=== PATIENT | male | born 1985 | race Caucasian/White ===

== ENCOUNTER → 2016-04-27 | Outpatient (CLI) | payer OTHER ==
--- NOTE | 2016-04-27 10:51 | US ---
EXAMINATION TYPE: US abdomen complete DATE OF EXAM: 04/27/2016 8:06 AM COMPARISON: NONE CLINICAL HISTORY: R10.30 Lower Abd Pain. RUQ pain EXAM MEASUREMENTS: Liver Length: 16.5 cm Gallbladder Wall: 0.3 cm CBD: 0.3 cm Spleen: 14.6 cm Right Kidney: 11.8 x 4.0 x 6.0 cm Left Kidney: 11.2 x 6.0 x 5.3 cm TECHNOLOGIST IMPRESSION: Pancreas: visualized portions appear wnl Liver: appears wnl Gallbladder: no evidence of stones Evidence for sonographic Villalpando's sign: No CBD: wnl Spleen: enlarged Right Kidney: no evidence of hydronephrosis or mass Left Kidney: no evidence of hydronephrosis or mass Upper IVC: wnl Abd Aorta: appears wnl IMPRESSION: 1. Unremarkable abdomen ultrasound.
== END ==
LOC: RADUSWWP 07:38
PROVIDERS: ATTEND Family Medicine
DX: R10.30 Lower abdominal pain, unspecified (principal)
CPT/HCPCS: 76700

== ENCOUNTER 2016-06-21 12:36 | Emergency (ER) | payer OTHER ==
[2016-06-21] MEDS ORDERED: HYDROcodone/APAP 5-325MG 1 EACH TAB PO STA (12:53)
--- NOTE | 2016-06-21 12:56 | ED ---
Seizure HPI - General Chief Complaint: Seizure Stated Complaint: Seizure Time Seen by Provider: 06/21/16 12:46 Source: patient, RN notes reviewed Mode of arrival: wheelchair Limitations: no limitations - History of Present Illness Initial Comments: 30-year-old male presents emergency Department chief complaint seizure. Patient had a witnessed seizure at home by his significant other. Patient states is his fourth seizure that he's had. Patient is scheduled to see a neurologist in 3 weeks. Patient states that he was walking on stairs had a seizure. Patient does complain of left rib pain, facial injury. Witnessed seizure lasting approximately 1 minute tonic-clonic in nature. Patient denies any mouth injuries no lacerations. Patient states that he has no dizziness no blurred vision no focal weakness at this time. Patient has not taken any medication for seizures. - Related Data Home Medications Medication Instructions Recorded Confirmed Pregabalin [Lyrica] 75 mg PO BID 06/21/16 06/21/16 traMADol HCl [Ultram] 50 mg PO BID PRN 06/21/16 06/21/16 Allergies Allergy/AdvReac Type Severity Reaction Status Date / Time No Known Allergies Allergy Verified 06/21/16 13:20 Review of Systems ROS Statement: Those systems with pertinent positive or pertinent negative responses have been documented in the HPI. ROS Other: All systems not noted in ROS Statement are negative. Past Medical History Additional Past Medical History / Comment(s): IBS, seizure History of Any Multi-Drug Resistant Organisms: None Reported Past Surgical History: Ear Surgery, Tonsillectomy Past Psychological History: No Psychological Hx Reported Smoking Status: Current every day smoker Past Alcohol Use History: Abuse, Daily Past Drug Use History: Marijuana General Exam Limitations: no limitations General appearance: alert, in no apparent distress Head exam: Present: atraumatic, normocephalic, normal inspection Eye exam: Present: normal appearance, PERRL, EOMI, periorbital tenderness (Mild left). Absent: scleral icterus, conjunctival injection, periorbital swelling ENT exam: Present: normal exam, normal oropharynx, mucous membranes moist, TM's normal bilaterally, normal external ear exam Neck exam: Present: normal inspection, full ROM. Absent: tenderness, meningismus, lymphadenopathy Respiratory exam: Present: normal lung sounds bilaterally, chest wall tenderness (Moderate left lateral to posterior). Absent: respiratory distress, wheezes, rales, rhonchi, stridor Cardiovascular Exam: Present: regular rate, normal rhythm, normal heart sounds. Absent: systolic murmur, diastolic murmur, rubs, gallop, clicks GI/Abdominal exam: Present: soft, normal bowel sounds. Absent: distended, tenderness, guarding, rebound, rigid Extremities exam: Present: normal inspection, full ROM, normal capillary refill. Absent: tenderness, pedal edema, joint swelling, calf tenderness Neurological exam: Present: alert, oriented X3, CN II-XII intact, reflexes normal. Absent: motor sensory deficit Skin exam: Present: warm, dry, intact, normal color. Absent: rash Course Vital Signs 06/21/16 06/21/16 12:44 13:50 Temperature 97.3 F L 97.7 F Pulse Rate 97 96 Respiratory 18 16 Rate Blood Pressure 146/93 133/81 O2 Sat by Pulse 98 97 Oximetry Medical Decision Making - Medical Decision Making 30-year-old male present emergency from for seizure. Patient has known seizure disorder currently we did see neurology. Patient informed that he cannot drive for 6 months and until cleared by neurologist. Patient is stable at this time. Patient will be discharged. Return parameters were discussed. - Lab Data Result diagrams: 06/21/16 13:10 06/21/16 13:13 Lab Results 06/21/16 06/21/16 Range/Units 13:10 13:13 WBC 8.4 (3.8-10.6) k/uL RBC 4.87 (4.30-5.90) m/uL Hgb 15.6 (13.0-17.5) gm/dL Hct 45.8 (39.0-53.0) % MCV 94.2 D (80.0-100.0) fL MCH 32.1 (25.0-35.0) pg MCHC 34.1 (31.0-37.0) g/dL RDW 12.6 (11.5-15.5) % Plt Count 177 (150-450) k/uL Neutrophils % 74 % Lymphocytes % 19 % Monocytes % 4 % Eosinophils % 2 % Basophils % 1 % Neutrophils # 6.2 (1.3-7.7) k/uL Lymphocytes # 1.6 (1.0-4.8) k/uL Monocytes # 0.3 (0-1.0) k/uL Eosinophils # 0.1 (0-0.7) k/uL Basophils # 0.1 (0-0.2) k/uL Sodium 140 (137-145) mmol/L Potassium 4.4 (3.5-5.1) mmol/L Chloride 106 (98-107) mmol/L Carbon Dioxide 26 (22-30) mmol/L Anion Gap 8 mmol/L BUN 11 (9-20) mg/dL Creatinine 0.96 (0.66-1.25) mg/dL Est GFR (MDRD) Af Amer >60 (>60 ml/min/1.73 sqM) Est GFR (MDRD) Non-Af >60 (>60 ml/min/1.73 sqM) Glucose 117 H (74-99) mg/dL Calcium 9.9 (8.4-10.2) mg/dL Total Bilirubin 0.7 (0.2-1.3) mg/dL AST 39 (17-59) U/L ALT 54 (21-72) U/L Alkaline Phosphatase 89 (38-126) U/L Total Protein 7.7 (6.3-8.2) g/dL Albumin 4.6 (3.5-5.0) g/dL Serum Alcohol <10 mg/dL 06/21/16 14:19 EKG performed at 13:19 normal sinus rhythm rate of 92 NH interval 164 QRS duration 80, QT/QTC 384/474 Disposition Clinical Impression: Generalized seizure Disposition: HOME SELF-CARE Condition: Stable Instructions: Recurrent Seizures in Adults (ED) Additional Instructions: Please return to the Emergency Department if symptoms worsen or any other concerns. Time of Disposition: 14:20
[2016-06-21 13:26] LABS: Basophils # (A) 0.1 k/uL (0-0.2); Basophils % (A) 1 %; CH 32.3; CHCM 34.4; Eosinophils # (A) 0.1 k/uL (0-0.7); Eosinophils % (A) 2 %; HCT 45.8 % (39.0-53.0); HDW 2.36; HGB 15.6 gm/dL (13.0-17.5); Luc # (Auto) 0.08; Luc % (Auto) 1; Lymphocytes # (A) 1.6 k/uL (1.0-4.8); Lymphocytes % (A) 19 %; MCH 32.1 pg (25.0-35.0); MCHC 34.1 g/dL (31.0-37.0); Mean Platelet Volume 7.6; Monocytes # (A) 0.3 k/uL (0-1.0); Monocytes % (A) 4 %; Neutrophils # (A) 6.2 k/uL (1.3-7.7); Neutrophils % (A) 74 %; RBC 4.87 m/uL (4.30-5.90); RDW 12.6 % (11.5-15.5); WBC 8.4 k/uL (3.8-10.6); WBC (Perox) 8.06
[2016-06-21 13:34] LABS: MCV 94.2 fL (80.0-100.0)
[2016-06-21 13:43] LABS: ALT 54 U/L (21-72); AST 39 U/L (17-59); Alcohol <10 mg/dL; Alkaline Phosphatase 89 U/L (38-126); Anion Gap 8 mmol/L; Blood Urea Nitrogen 11 mg/dL (9-20); Calcium 9.9 mg/dL (8.4-10.2); Carbon Dioxide 26 mmol/L (22-30); Chloride 106 mmol/L (98-107); Glucose 117 mg/dL (74-99); Non-African American GFR(MDRD) >60 (>60 ml/min/1.73 sqM); Potassium 4.4 mmol/L (3.5-5.1); Sodium 140 mmol/L (137-145); Total Bilirubin 0.7 mg/dL (0.2-1.3); Total Protein 7.7 g/dL (6.3-8.2)
--- NOTE | 2016-06-21 13:50 | XR ---
EXAMINATION TYPE: XR ribs LT w pa chest xray DATE OF EXAM: 06/21/2016 1:44 PM CLINICAL HISTORY: Chest and left-sided rib pain. TECHNIQUE: Single frontal view of the chest is obtained. A frontal and oblique images of the left-ced ed ribs are acquired. COMPARISON: Chest x-ray July 18, 2014 FINDINGS: There is no focal air space opacity, pleural effusion, or pneumothorax seen. The cardiac silhouette size is within normal limits. Underlying dextroconvex scoliosis is redemonstrated centered in the mid to lower thoracic spine. Dedicated images left-sided ribs show no acute displaced fracture. Overlying soft tissue is unremarka ble. IMPRESSION: 1. No acute cardiopulmonary process. 2. No acute displaced left-sided rib fractures are seen.
--- NOTE | 2016-06-21 14:14 | CT ---
EXAMINATION TYPE: CT brain wo con DATE OF EXAM: 06/21/2016 2:03 PM COMPARISON: Prior head CT 02 September 2013 HISTORY: Seizure CT DLP: 1132 mGycm Automated exposure control for dose reduction was used. FINDINGS: There is no acute intracranial hemorrhage, mass effect, or midline shift identified. The ventricles and sulci are within normal limits in size. Cavum septum pellucidum is again noted. The globes are i ntact and the visualized sinuses are clear. IMPRESSION: No acute intracranial hemorrhage, mass effect, or midline shift is seen.
[2016-06-21] MEDS ORDERED: levETIRAcetam 500 MG TAB PO STA (14:21)
--- NOTE | 2016-06-21 14:23 | ED ---
Medical Decision Making - Medical Decision Making Patient was started on Keppra at this time. Patient also advised to discontinue Ultram. - Lab Data Result diagrams: 06/21/16 13:10 06/21/16 13:13 Lab Results 06/21/16 06/21/16 Range/Units 13:10 13:13 WBC 8.4 (3.8-10.6) k/uL RBC 4.87 (4.30-5.90) m/uL Hgb 15.6 (13.0-17.5) gm/dL Hct 45.8 (39.0-53.0) % MCV 94.2 D (80.0-100.0) fL MCH 32.1 (25.0-35.0) pg MCHC 34.1 (31.0-37.0) g/dL RDW 12.6 (11.5-15.5) % Plt Count 177 (150-450) k/uL Neutrophils % 74 % Lymphocytes % 19 % Monocytes % 4 % Eosinophils % 2 % Basophils % 1 % Neutrophils # 6.2 (1.3-7.7) k/uL Lymphocytes # 1.6 (1.0-4.8) k/uL Monocytes # 0.3 (0-1.0) k/uL Eosinophils # 0.1 (0-0.7) k/uL Basophils # 0.1 (0-0.2) k/uL Sodium 140 (137-145) mmol/L Potassium 4.4 (3.5-5.1) mmol/L Chloride 106 (98-107) mmol/L Carbon Dioxide 26 (22-30) mmol/L Anion Gap 8 mmol/L BUN 11 (9-20) mg/dL Creatinine 0.96 (0.66-1.25) mg/dL Est GFR (MDRD) Af Amer >60 (>60 ml/min/1.73 sqM) Est GFR (MDRD) Non-Af >60 (>60 ml/min/1.73 sqM) Glucose 117 H (74-99) mg/dL Calcium 9.9 (8.4-10.2) mg/dL Total Bilirubin 0.7 (0.2-1.3) mg/dL AST 39 (17-59) U/L ALT 54 (21-72) U/L Alkaline Phosphatase 89 (38-126) U/L Total Protein 7.7 (6.3-8.2) g/dL Albumin 4.6 (3.5-5.0) g/dL Serum Alcohol <10 mg/dL Disposition Clinical Impression: Generalized seizure Disposition: HOME SELF-CARE Condition: Stable Instructions: Recurrent Seizures in Adults (ED) Additional Instructions: Discontinue Ultram. Please return to the Emergency Department if symptoms worsen or any other concerns. Prescriptions: levETIRAcetam [Keppra] 500 mg PO Q12HR #60 tab Referrals: Nigel Contreras DO [Primary Care Provider] - 1-2 days Time of Disposition: 14:23
[2016-06-21 14:36] VITALS: BP 133/80; PULSE 85; RESP 20; TEMP 97.6
== END 2016-06-21 14:45 | disposition home or self-care (01) ==
LOC: EC 12:36
DX: G40.409 Other generalized epilepsy and epileptic syndromes, not intractable, without status epilepticus (principal); R07.81 Pleurodynia; F17.200 Nicotine dependence, unspecified, uncomplicated; Z79.899 Other long term (current) drug therapy
CPT/HCPCS: 36415; 70450; 80053; 80320; 85025; 93005; 99285

== ENCOUNTER → 2016-08-03 | Outpatient (CLI) | payer OTHER ==
--- NOTE | 2016-08-03 20:25 | MR ---
EXAMINATION TYPE: MR brain wo con DATE OF EXAM: 08/03/2016 COMPARISON: CT brain June 21, 2016. HISTORY: Partial idiopathic epilepsy with seizures of localized onset per order (G 40.009) TECHNIQUE: Multiplanar, multisequence imaging of the brain and brainstem is performed without IV cont rast. FINDINGS: Diffusion weighted images demonstrate no evidence of a recent infarct or other diffusion abnormality. There is no extraaxial fluid collection or significant white matter signal abnormality. The ventricu lar system and cisternal spaces are normal in size and appearance. The brain volume is age appropria te. Septum pellucidum vergae is present. T2 coronal weighted images show hippocampal gyri to appear s ymmetric and felt within normal limits. Midline structures demonstrate normal morphology. The craniocervical junction appears within normal limits. Normal vascular flow voids are present. The visualized sinuses are clear and the globes are i ntact. IMPRESSION: No suspicious finding is seen to account for patient's symptoms.
== END | disposition home or self-care (01) ==
LOC: RADMRIMAIN 17:42
PROVIDERS: ATTEND Psychiatry & Neurology Neurology
DX: G40.009 Localization-related (focal) (partial) idiopathic epilepsy and epileptic syndromes with seizures of localized onset, not intractable, without status epilepticus (principal)
CPT/HCPCS: 70551

== ENCOUNTER 2017-07-04 11:49 | Day surgery (SDC) | payer OTHER ==
[2017-07-03 08:34] VITALS: BMI 29.4
[~2017-07-04 11:49] MED LIST: LACTATED RINGERS 1,000 ML IV SCH
[2017-07-04 12:33] VITALS: TEMP 98
[2017-07-04] MEDS ORDERED: LIDOCAINE 1% 20 ML VIAL (10MG/ML) FOR IV START INTRADERMA ONE (12:34)
[2017-07-04] MEDS ORDERED: fentaNYL (PF) 50 MCG/ML 2 ML AMP ONE (12:57)
[2017-07-04] MEDS ORDERED: MIDAZOLAM 2 MG/2 ML VIAL ONE (12:57)
[2017-07-04] MEDS ORDERED: LIDOCAINE 1% INJ 10MG/ML (20 ML MDV) ONE (12:57)
[2017-07-04] MEDS ORDERED: PROPOFOL 10 MG/ML 20 ML VIAL IV ONE (12:57)
[2017-07-04] MEDS ORDERED: LACTATED RINGERS 1,000 ML IV ONE (13:23)
--- NOTE | 2017-07-04 13:35 | P.PCN ---
Date of Procedure: 07/04/17 Procedure(s) Performed: Procedure: 1. Esophagogastroduodenoscopy and biopsy. 2. Colonoscopy and biopsy. Preoperative diagnosis: Epigastric pain and diarrhea. Postoperative diagnosis: 1. Small sliding hiatal hernia and low-grade distal esophagitis. 2. Gastritis and duodenitis. 3. Multiple biopsies obtained from the duodenum, antrum and esophagus. 4. Colon and terminal ileum within normal limits. 5. Biopsies obtained from the terminal ileum and random colon. Preparation: HalfLytely prep. Sedation: Was provided by anesthesia. Brief clinical history: The patient is a 31-year-old male who is scheduled for this evaluation for the above reasons. He has had diarrhea for more than 10 years. No extraintestinal manifestations of inflammatory bowel disease. No family history of inflammatory bowel disease. This would be his first evaluation. Procedure: With the patient on his left lateral decubitus position and after informed consent and adequate sedation, I passed the Olympus-GIF 160 video upper endoscope through the cricopharyngeus down the esophagus. GE junction was around 42-43 cm from the incisors and there was a small sliding hiatal hernia. The distal esophagus showed short linear erosion or 2 consistent with low-grade esophagitis but there were no strictures or Mobley's esophagus. The endoscope was then passed into the stomach which was insufflated with air and inspected in detail including the retroflex view in the cardia. There was some mottling and erythema in the antrum but there were no ulcers or erosions. Pyloric channel did not show any ulcers. Duodenal bulb showed erythema and friability but no ulcers, erosions or bleeding. I obtained biopsies from the duodenum, antrum and esophagus then the endoscope was withdrawn and I proceeded with the colonoscopy. Perianal area did not show any fissures or fistulas. There were no masses felt on digital rectal examination. The Olympus CFQ 160L video colonoscope was then inserted in the rectum in the usual fashion and advanced to the cecum. I intubated the ileocecal valve and examined the terminal ileum. Terminal ileum and colon appeared healthy with no edema, erythema, friability, ulceration, exudation or spontaneous bleeding. I obtained biopsies from the terminal ileum and randomly from the colon then I retroflexed the endoscope in the rectum before the endoscope was withdrawn. The patient tolerated the procedure well. Plan: The patient was reassured. Will await biopsy results and make further plans based on his course and biopsy results. I will keep you updated on his progress.
[2017-07-04 14:15] VITALS: BP 120/76; PULSE 75; RESP 16
== END 2017-07-04 14:20 | disposition home or self-care (01) ==
LOC: ORWHC2ENDO 11:49
DX: K44.9 Diaphragmatic hernia without obstruction or gangrene (principal); K29.80 Duodenitis without bleeding; K31.9 Disease of stomach and duodenum, unspecified; K21.0 Gastro-esophageal reflux disease with esophagitis; K29.70 Gastritis, unspecified, without bleeding; K52.9 Noninfective gastroenteritis and colitis, unspecified; I10 Essential (primary) hypertension; G40.909 Epilepsy, unspecified, not intractable, without status epilepticus; Z79.899 Other long term (current) drug therapy
CPT/HCPCS: 88305; 45380; 43239; J2250; J2001; J3010; J2704

== ENCOUNTER → 2024-04-19 | Outpatient (CLI) | payer OTHER ==
--- NOTE | 2024-04-24 12:34 | P.PCN ---
Description of Procedure: CLINICAL: A home sleep apnea test has been done for confirmation of possible obstructive sleep apnea-hypopnea syndrome. DESCRIPTION OF PROCEDURE: RESULTS: Recording time was 6 hours 17 minutes. Evaluation time was 6 hours 3 minutes. Evaluation time is sufficient for making conclusion about results of the test. Raw data of sleep recording has been reviewed and is adequate. Respiratory channel showed 52 apneas and 0 hypopneas. Apnea-hypopnea index was 8.6 per hour, which included obstructive apnea index 0.3, central apnea index 8.1, mixed apnea index 0.2. Pulse rate in the range between minimum 47, maximum 85, average 61 by computer calculation. Lowest desaturation was 88%. IMPRESSION: 1. Mild mostly Central Sleep Apnea Hypopnea Syndrome. 2. Epilepsy 3. Insomnia, multiple awakenings from sleep. Please see other impressions from consultation. PLAN: 1.The patient should have PAP titration for correction of central sleep apneas during sleep. 2. Following plan after reading PAP titration. 3. Watching weight. 4. Sleep hygiene with regular time in bed for at least 8 hours. 5. No driving if feeling any sleepiness. Thank you very much for allowing me to participate in the management of your patient. Sincerely, Kyle Mcdaniel MD, PhD, FAASM Diplomat of [place] [employer] Sleep Medicine [employer] [place] [employer] Immigration Attorney of [facility] [place] cc: Roselia Garcia MD
== END ==
LOC: 3 N SLEEP 11:05
PROVIDERS: ATTEND Internal Medicine
DX: G47.31 Primary central sleep apnea (principal); G40.909 Epilepsy, unspecified, not intractable, without status epilepticus; G47.00 Insomnia, unspecified; F17.210 Nicotine dependence, cigarettes, uncomplicated